=== PATIENT | male | born 1985 | race Asian ===

== ENCOUNTER 2023-06-18 16:41 | Emergency (ER) | payer BC, OTHER ==
[~2023-06-18] VITALS: Ht 175.3 cm; Wt 108.4 kg
[2023-06-18] MEDS ORDERED: ASPIRIN 325 MG TABLET PO ONE (19:45)
[2023-06-18 20:27] VITALS: BP 120/86; TEMP 98.3; O2SAT 98
== END 2023-06-18 21:01 | disposition home or self-care (01) ==
LOC: ER 16:44
DX: I82.90 Acute embolism and thrombosis of unspecified vein (principal)
CPT/HCPCS: 73090; 73130; A4606; A4663